=== PATIENT | male | born 1945 | race African-American/Black ===

== ENCOUNTER 2018-09-06 12:52 | Outpatient (CLI) | payer OTHER ==
[2018-09-06 14:23] LABS: Hemoglobin 10.1 g/dL (14.0-18.0); Mean Corpuscular HGB CONC 31.7 g/dL (32.0-36.0); Mean Corpuscular Hemoglobin 28.9 pg (27.0-31.0); Mean Corpuscular Volume 91.1 fL (78.0-98.0); Mean Platelet Volume 7.4 fL (7.4-10.4); Platelet Count 337 thou/uL (130-400); RBC Distribution Width 13.1 % (11.5-14.5); Red Blood Cell (RBC) Count 3.51 mill/uL (4.70-6.10); White Blood Cell (WBC) Count 7.5 thou/uL (4.8-10.8)
[2018-09-06 14:36] LABS: Anion Gap 9 mmol/L (10-20); BUN (Urea Nitrogen) 25 mg/dL (8.4-25.7); Calc. Creatinine Clearance 0 mL/min (70-130); Carbon Dioxide 25 mmol/L (23-31); Chloride 105 mmol/L (98-107); Estimated GFR-MDRD 35; Glucose 136 mg/dL (83-110); Sodium 134 mmol/L (136-145)
== END 2018-09-06 12:53 | disposition home or self-care (01) ==
LOC: LABBT 12:52
PROVIDERS: ATTEND Urology
DX: Z01.818 Encounter for other preprocedural examination (principal); N40.1 Benign prostatic hyperplasia with lower urinary tract symptoms; R33.9 Retention of urine, unspecified; R39.14 Feeling of incomplete bladder emptying; N39.0 Urinary tract infection, site not specified; Z87.440 Personal history of urinary (tract) infections
CPT/HCPCS: 80048; 85027

== ENCOUNTER 2018-11-09 06:50 | Day surgery (SDC) | payer OTHER ==
[2018-11-01 15:10] VITALS: BMI 26.8
[2018-11-09] MEDS ORDERED: Furosemide 20 MG/2 ML VIAL ONE (07:10)
[2018-11-09] MEDS ORDERED: Levofloxacin 500 mg/D5W 100 ml Premix Bag ONE (07:19)
[2018-11-09] MEDS ORDERED: Dexamethasone 4 mg/ml Vial ONE (07:20)
[2018-11-09] MEDS ORDERED: Bupivacaine 0.25% HCL 30 ML VIAL ONE (09:16)
[2018-11-09] MEDS ORDERED: B & O ONE (09:16)
[2018-11-09] MEDS ORDERED: Fentanyl 100 MCG/2 ML VIAL ONE (09:22)
[2018-11-09] MEDS ORDERED: Bacitracin Zinc Ointment 30 gm TUBE ONE (10:13)
[2018-11-09] MEDS ORDERED: HYDROcodone/Acetaminophen 10/325 mg Tablet ONE (13:35)
[2018-11-09] MEDS ORDERED: Glycopyrrolate 0.2 MG/ML 5 ML SYRINGE ONE (13:47)
[2018-11-09] MEDS ORDERED: PROPOFOL 200 MG/20 ML VIAL ONE (13:47)
[2018-11-09] MEDS ORDERED: Ondansetron PF 4 MG/2 ML Vial ONE (13:47)
[2018-11-09] MEDS ORDERED: Lidocaine 1% PF 5 ML VIAL ONE (13:47)
[2018-11-09] MEDS ORDERED: Rocuronium Bromide 10 MG/ML (10ML VIAL) ONE (13:47)
--- NOTE | 2018-11-09 22:36 | OP ---
DATE OF PROCEDURE: 11/09/2018 PREOPERATIVE DIAGNOSES: 1. Benign prostatic hypertrophy. 2. Retention. 3. Urinary tract infections. POSTOPERATIVE DIAGNOSES: 1. Benign prostatic hypertrophy. 2. Retention. 3. Urinary tract infections. PROCEDURES PERFORMED: GreenLight laser vaporization of the prostate with enucleation of the middle lobe using 83,167 joules as well as circumcision. ANESTHESIA: General with endotracheal tube and penile block using 10 mL of Marcaine. FINDINGS: Adequate resection of the middle lobe by enucleation and opening up the lateral lobes. A standard circumcision. DRAIN REMAININ-South African two-way. SPECIMENS: Prostate. INDICATIONS FOR PROCEDURE: This is a 73-year-old male who is followed in the office with BPH and urinary retention, already doing CIC, but not often enough with concern for overdistention of the bladder as he would voiding in between. So we set him up for definitive therapy. He also had infections, so elective circumcision would be performed as well. DESCRIPTION OF PROCEDURE: The patient was brought into the room by Anesthesia, laid on table in supine position. After receiving general anesthetic, the legs were placed in lithotomy position and perineum was prepped and draped in a sterile fashion. Using a 22.5-[place] cystoscope and 30 degree lens, urethra was traversed and the bladder inspected. The ureteral orifices were in normal position, although I also then looked for his transplant ureteral orifice, which was up from the right upper quadrant of the bladder. All of these were preserved throughout the case. A power of 80 was used through the mid gland, which was taken down to the bladder neck and then enucleated in small enough pieces that could be irrigated out. A power of 80 was used near the bladder neck and the veru and a power of 180 was used for the midgland. A total of 82,167 joules were used and the scope was removed, a decent stream was noted. The scope was put back in. Bladder decompressed and hemostasis ensured. A power of 80 was used to paint some of the prostatic bed for hemostasis. Then, the scope was removed final time and a 20-[place] African Reddy was placed to gravity. Keeping in the legs in lithotomy, they were then lowered and he was given a penile block using 10 mL of 0.5% Marcaine. Then 2 circumferential incisions were made , one with foreskin reduced to the level of the groin, the other with the foreskin retracted approximately 3 mm proximal to the scooter. The excess skin was excised and then the two skin edges were reapproximated, but not before ensuring hemostasis with the electrocautery. The two skin edges reapproximated using 3-0 and 4-0 chromic in an interrupted fashion. Hemostasis was ensured. Bacitracin and sterile dressing were applied. The catheter was then unplugged and set to gravity. The patient was awakened and transferred to PACU in stable condition. Job ID: [id number] [facility]
== END 2018-11-09 15:10 | disposition home or self-care (01) ==
LOC: SDC 06:50
PROVIDERS: ATTEND Urology
PROC: 0V508ZZ Destruction of Prostate, Via Natural or Artificial Opening Endoscopic (ICD-10-PCS; principal; 2018-11-09)
PROC: 0VTTXZZ Resection of Prepuce, External Approach (ICD-10-PCS; principal; 2018-11-09)
DX: N40.1 Benign prostatic hyperplasia with lower urinary tract symptoms (principal); R33.8 Other retention of urine; R35.0 Frequency of micturition; R39.14 Feeling of incomplete bladder emptying; R35.1 Nocturia; I12.0 Hypertensive chronic kidney disease with stage 5 chronic kidney disease or end stage renal disease; E11.22 Type 2 diabetes mellitus with diabetic chronic kidney disease; N18.6 End stage renal disease; M19.90 Unspecified osteoarthritis, unspecified site; I25.10 Atherosclerotic heart disease of native coronary artery without angina pectoris; E03.9 Hypothyroidism, unspecified; Z87.440 Personal history of urinary (tract) infections; Z87.891 Personal history of nicotine dependence; Z79.01 Long term (current) use of anticoagulants; Z79.4 Long term (current) use of insulin; Z79.52 Long term (current) use of systemic steroids; Z79.82 Long term (current) use of aspirin; Z79.899 Other long term (current) drug therapy; Z94.0 Kidney transplant status
CPT/HCPCS: 36416; 88305; J1100; J1940; J1956; J2001; J2405; J2704; J3010; S0020

== ENCOUNTER 2020-09-19 06:51 | Outpatient (CLI) | payer OTHER ==
[2020-09-20 03:42] LABS: SARS-CoV-2 MS2 Positive; SARS-CoV-2 N Gene Negative; SARS-CoV-2 S Gene Negative; SARS-CoV-2 by NAA Not Detected (NotDetected); SARS-CoV-2 orf1ab Negative
== END 2020-09-19 06:52 | disposition home or self-care (01) ==
LOC: LABBT 06:51
PROVIDERS: ATTEND Internal Medicine Gastroenterology
DX: Z01.812 Encounter for preprocedural laboratory examination (principal); Z20.828 Contact with and (suspected) exposure to other viral communicable diseases
CPT/HCPCS: 87635; U0003

== ENCOUNTER 2020-09-24 05:52 | Day surgery (SDC) | payer OTHER ==
[2020-09-19 11:35] VITALS: BMI 23.7
--- NOTE | 2020-09-24 09:20 | OP ---
DATE OF PROCEDURE: 09/24/2020 PROCEDURE PERFORMED: Colonoscopy. PREOPERATIVE DIAGNOSIS: History of colon polyps. DESCRIPTION OF PROCEDURE: Informed consent was obtained from the patient. He was sedated with total intravenous anesthesia. The rectal exam was performed and was normal. The preparation quality was good. The colonoscope was advanced to the cecum, where the ileocecal valve and appendiceal orifice were clearly identified. There was a tattoo noted in the right colon, in the ascending colon with no residual polyp tissue around it. There was a shallow small diverticulum in the proximal transverse colon. The remainder of the colonic mucosa was normal. Retroflexed views in the rectum revealed moderate internal hemorrhoids. IMPRESSION: 1. Minimal diverticulosis. 2. Moderate internal hemorrhoids. 3. Otherwise normal colonoscopy. RECOMMENDATIONS: 1. Repeat colonoscopy in 5 years for surveillance. 2. Restart anticoagulation today. Job ID: [id number]
[2020-09-24] MEDS ORDERED: PROPOFOL 200 MG/20 ML VIAL ONE (13:37)
[2020-09-24] MEDS ORDERED: Lidocaine 1% PF 5 ML VIAL ONE (13:37)
== END 2020-09-24 10:15 | disposition home or self-care (01) ==
LOC: SDC 05:52
PROVIDERS: ATTEND Internal Medicine Gastroenterology
PROC: 0DJD8ZZ Inspection of Lower Intestinal Tract, Via Natural or Artificial Opening Endoscopic (ICD-10-PCS; principal; 2020-09-24)
DX: Z12.11 Encounter for screening for malignant neoplasm of colon (principal); K57.30 Diverticulosis of large intestine without perforation or abscess without bleeding; K64.8 Other hemorrhoids; I48.91 Unspecified atrial fibrillation; G47.33 Obstructive sleep apnea (adult) (pediatric); K59.00 Constipation, unspecified; K21.9 Gastro-esophageal reflux disease without esophagitis; I12.9 Hypertensive chronic kidney disease with stage 1 through stage 4 chronic kidney disease, or unspecified chronic kidney disease; E11.22 Type 2 diabetes mellitus with diabetic chronic kidney disease; N18.9 Chronic kidney disease, unspecified; I25.10 Atherosclerotic heart disease of native coronary artery without angina pectoris; E78.00 Pure hypercholesterolemia, unspecified; Z86.010 Personal history of colon polyps; M19.90 Unspecified osteoarthritis, unspecified site; Z79.01 Long term (current) use of anticoagulants; Z79.4 Long term (current) use of insulin; Z79.82 Long term (current) use of aspirin; Z79.899 Other long term (current) drug therapy; Z87.891 Personal history of nicotine dependence; Z94.0 Kidney transplant status; Z95.1 Presence of aortocoronary bypass graft
CPT/HCPCS: 36416; J2704

== ENCOUNTER 2020-11-07 15:20 | Outpatient (CLI) | payer MEDICARE ==
--- NOTE | 2020-11-07 16:29 | RAD ---
Lumbar spine 3 views HISTORY: Low back pain. FINDINGS: There are 5 lumbar type vertebrae. Pedicles are intact. Significant loss of definition involving the L4 inferior endplate when correlated with prior imaging. Loss of height by approximately 30%. Minimal degenerative spondylolisthesis at the L4-5 level. Mild chronic endplate deformities throughout the remainder of the vertebral bodies. Alignment is adonis omic. Osteophytosis throughout the lower facets. Prominent calcification of the arterial structures. IMPRESSION : Abnormality involving the L4-5 disc space and L4 inferior endplate as detailed above, concerning for an aggressive process such as discitis/osteomyelitis. Please consider MRI lumbar spine, without and with gadolinium contrast, for better characterization. Findings were called to Dr. Sisi Chairez at 1615 hours. Code CR.
== END 2020-11-07 15:21 | disposition home or self-care (01) ==
LOC: BICRAD 15:20
PROVIDERS: ATTEND Internal Medicine
DX: M54.9 Dorsalgia, unspecified (principal); M51.36 Other intervertebral disc degeneration, lumbar region
CPT/HCPCS: 72100

== ENCOUNTER 2021-01-22 08:52 | Outpatient (CLI) | payer MEDICARE | END 2021-01-22 08:53 | disposition home or self-care (01) | LOC: MRI 08:52 | PROVIDERS: ATTEND Internal Medicine Infectious Disease | DX: M54.5 Low back pain (principal); R93.7 Abnormal findings on diagnostic imaging of other parts of musculoskeletal system; Z94.0 Kidney transplant status; M47.817 Spondylosis without myelopathy or radiculopathy, lumbosacral region | CPT/HCPCS: 72158 ==